=== PATIENT | male | born 1985 | race Caucasian/White ===

== ENCOUNTER 2018-08-30 01:32 | Emergency (ER) | payer OTHER ==
[~2018-08-30] VITALS: Ht 172.7 cm; Wt 83.0 kg
--- NOTE | 2018-08-30 01:37 | NUR ---
BIB [facility], DEPUTY WAS AT WORK AND AFTER A DRILL STARTED FEELING LIGHT HEADED, SWEATING AND PALE. MONITORS APPLIED, SIDERAILS UP X2, CALL LIGHT WITHIN REACH
[2018-08-30 01:41] VITALS: BP 152/90
== END 2018-08-30 02:03 ==
LOC: ED 01:57
DX: R55 Syncope and collapse (principal); R42 Dizziness and giddiness
CPT/HCPCS: 93005; 99283

== ENCOUNTER 2020-02-23 02:49 | Emergency (ER) | payer OTHER ==
[~2020-02-23] VITALS: Ht 172.7 cm; Wt 91.0 kg
[2020-02-23] MEDS ORDERED: METHOCARBAMOL 750 MG TABLET PO ONE (03:00)
[2020-02-23] MEDS ORDERED: METHOCARBAMOL 750 MG TABLET ONE (03:03)
[2020-02-23 04:48] VITALS: BP 138/96
== END 2020-02-23 04:50 | disposition home or self-care (01) ==
LOC: ED 03:58
DX: S39.012A Strain of muscle, fascia and tendon of lower back, initial encounter (principal); R25.2 Cramp and spasm; G89.11 Acute pain due to trauma; M79.641 Pain in right hand; Y08.89XA Assault by other specified means, initial encounter; Y93.89 Activity, other specified; Y92.89 Other specified places as the place of occurrence of the external cause; Y99.8 Other external cause status
CPT/HCPCS: 72110; 99284